=== PATIENT | male | born 1975 | race Caucasian/White ===

== ENCOUNTER 2017-06-08 18:49 | Emergency (ER) | payer MEDICAID ==
[2017-06-08] MEDS: ALBUTEROL 0.083% (NEB) 2.5 MG/3 ML AMP HHN (22:03)
[2017-06-08] MEDS: IPRATROPIUM (NEB) 0.5 MG/2.5 ML AMP HHN (22:03)
[2017-06-08] MEDS: DEXAMETHASONE 10 MG/ML 1 ML INJ IM (22:04)
== END 2017-06-09 00:08 | disposition home or self-care (01) ==
LOC: FTE 06-09 00:08
DX: J45.901 Unspecified asthma with (acute) exacerbation (principal)
CPT/HCPCS: 71045; 94664; 96372; 99284-25